=== PATIENT | female | born 1960 | race Caucasian/White ===

== ENCOUNTER 2016-07-01 05:21 | Emergency (ER) | payer MEDICAID ==
[2016-07-01 07:13] LABS: ABSOLUTE BASOPHILS # (AUTO) 0.1 10^3/uL (0.0-0.2); ABSOLUTE EOSINOPHILS # (AUTO) 0.2 10^3/uL (0.0-0.6); ABSOLUTE LYMPHOCYTES (AUTO) 3.7 10^3/uL (0.5-4.7); ABSOLUTE MONOCYTES (AUTO) 0.6 10^3/uL (0.1-1.4); ABSOLUTE NEUT (AUTO) 2.8 10^3/uL (1.7-8.2); BASOPHILS % (AUTO) 0.7 % (0-2); EOSINOPHILS % (AUTO) 2.9 % (0-6); HEMATOCRIT 33.1 % (36.0-47.0); HEMOGLOBIN 11.5 g/dL (12.0-15.5); HGB HCT DIFFERENCE 1.4; LYMPHOCYTES % (AUTO) 51.1 % (13-45); MEAN CORPUSCULAR HEMOGLOBIN 31.9 pg (27.0-33.4); MEAN CORPUSCULAR HGB CONC 34.7 g/dL (32.0-36.0); MEAN CORPUSCULAR VOLUME 92 fl (80-97); MONOCYTES % (AUTO) 7.7 % (3-13); RED CELL DISTRIBUTION WIDTH 12.6 % (11.5-14.0); SEGMENTED NEUTROPHILS % (AUTO) 37.6 % (42-78); WHITE BLOOD COUNT 7.3 10^3/uL (4.0-10.5)
[2016-07-01 07:32] LABS: PROTHROMBIN TIME 12.5 SEC (11.4-15.4)
[2016-07-01 07:33] LABS: PARTIAL THROMBOPLASTIN TIME 29.6 SEC (23.5-35.8)
[2016-07-01 07:34] LABS: ANION GAP 14 (5-19); BLOOD UREA NITROGEN 33 mg/dL (7-20); CALCIUM 9.9 mg/dL (8.4-10.2); CARBON DIOXIDE 24 mmol/L (22-30); CHLORIDE 107 mmol/L (98-107); CREATININE RESULT 1.08 mg/dL (0.52-1.25); GLUCOSE 113 mg/dL (75-110); POTASSIUM 4.2 mmol/L (3.6-5.0); SODIUM 144.6 mmol/L (137-145)
[2016-07-01] MEDS ORDERED: RIVAROXABAN 15 MG TABLET PO ONE (10:25)
--- NOTE | 2016-07-01 10:32 | ER Document Report ---
ED General - General Chief Complaint: Leg Swelling Stated Complaint: LEG PAIN TRAVEL OUTSIDE OF THE [place] 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 Patient currently states she's not any anticoagulation. Patient states shows a history of multiple blood clots is a IVC filter. States pain swelling ongoing for the last to 3 days. Denies fevers chills. Otherwise states that she sees hematology at [facility]. No recent travel - Related Data Allergies/Adverse Reactions: No Known Allergies Allergy (Verified 07/01/16 08:10) Past Medical History - Social History Smoking Status: Current Every Day Smoker Chew tobacco use (# tins/day): No Frequency of alcohol use: None Drug Abuse: Marijuana Family History: Reviewed & Not Pertinent Patient has suicidal ideation: No Patient has homicidal ideation: No - Past Medical History Cardiac Medical History: Reports: Hx DVT, Hx Hypercholesterolemia, Hx Pulmonary Embolism Pulmonary Medical History: Reports: Hx Asthma Neurological Medical History: Reports: Hx Migraine Renal/ Medical History: Reports: Hx Kidney Stones. Denies: Hx Peritoneal Dialysis GI Medical History: Reports: Hx Gastroesophageal Reflux Disease Psychiatric Medical History: Reports: Hx Bipolar Disorder, Hx Depression Past Surgical History: Reports: Hx Orthopedic Surgery - left leg; carpal tunnel to bilateral upper extrem - Immunizations Hx Diphtheria, Pertussis, Tetanus Vaccination: Yes - unknown Review of Systems - Review of Systems Constitutional: No symptoms reported EENT: No symptoms reported Cardiovascular: No symptoms reported Respiratory: No symptoms reported Gastrointestinal: No symptoms reported Genitourinary: No symptoms reported Female Genitourinary: No symptoms reported Musculoskeletal: Other - Bilateral lower extremity swelling Skin: No symptoms reported Hematologic/Lymphatic: No symptoms reported Neurological/Psychological: No symptoms reported Physical Exam - Vital signs Vitals: Temp Pulse Resp BP Pulse Ox 98.1 F 99 20 146/82 H 100 07/01/16 05:23 07/01/16 05:23 07/01/16 05:23 07/01/16 05:23 07/01/16 05:23 Interpretation: Normal - General General appearance: Appears well, Alert - HEENT Head: Normocephalic, Atraumatic Eyes: Normal Pupils: PERRL - Respiratory Respiratory status: No respiratory distress Chest status: Nontender Breath sounds: Normal Chest palpation: Normal - Cardiovascular Rhythm: Regular Heart sounds: Normal auscultation Murmur: No - Abdominal Inspection: Normal Distension: No distension Bowel sounds: Normal Tenderness: Nontender Organomegaly: No organomegaly - Back Back: Normal, Nontender - Extremities General upper extremity: Normal inspection, Nontender, Normal color, Normal ROM , Normal temperature General lower extremity: Normal inspection, Nontender, Edema - 2+ bilaterally. Patient does have tenderness to palpation of both calfs capillary refill intact distally. Patient has bilateral pedal pulses, Normal color, Normal ROM, Normal temperature, Normal weight bearing - Neurological Neuro grossly intact: Yes Cognition: Normal Orientation: AAOx4 [place] Coma Scale Eye Opening: Spontaneous [place] Coma Scale Verbal: Oriented R[place] Coma Scale Motor: Obeys Commands [place] Coma Scale Total: 15 Speech: Normal Motor strength normal: LUE, RUE, LLE, RLE Sensory: Normal - Psychological Associated symptoms: Normal affect, Normal mood - Skin Skin Temperature: Warm Skin Moisture: Dry Skin Color: Normal Course - Re-evaluation Re-evalutation: 07/01/16 12:43 Ultrasound shows subacute chronic DVTs. I did contact the [facility] inspected hematology on-call states as directed to having the patient seen recently last normal records weren't 2009. I did reconfirm with the patient patient states that she follows up at [facility] not [facility]. formerly [facility], [facility] was called and despite hematology states that they also do not have any records but recommended patient start on Xarelto. I did discussed case with our licensed acupuncturist on-call Dr. contreras who agrees to see the patient on outpatient basis also agree is with Xarelto 50 mg twice a day for her condition. Patient otherwise denies any bleeding disorders as a revision she was taken off of her Xarelto as that previous ER visits that showed she was on it. Patient continues to state that "there are [facility] took me off Xarelto and place being on Coumadin then on shots" patient is a very poor historian however looks to be stable for discharge home patient was given Xarelto prescription for Xarelto for next 21 days. Patient was given information to follow-up with Dr. dominguez - Vital Signs Vital signs: Temp Pulse Resp BP Pulse Ox 98.6 F 78 18 142/88 H 97 07/01/16 10:36 07/01/16 10:36 07/01/16 10:36 07/01/16 10:36 07/01/16 10:36 - Laboratory Result Diagrams: 07/01/16 07:07 07/01/16 07:07 Laboratory results interpreted by me: 07/01/16 07/01/16 07:07 07:07 RBC 3.60 L Hgb 11.5 L Hct 33.1 L Seg Neutrophils % 37.6 L Lymphocytes % 51.1 H BUN 33 H Est GFR (Non-Af Amer) 53 L Glucose 113 H Discharge - Discharge Clinical Impression: history of factor 5 leiden deficiency, subacute bilateral dvt, Localized swelling of both lower legs Condition: Good Disposition: HOME, SELF-CARE Instructions: DVT Outpatient Treatment (OM) Additional Instructions: Your ultrasound today shows chronic blood clots in both her legs. I have contacted [facility] and [facility] who both do not have any record of you seeing a platen grinder. I did call our hematologists here at [facility] Dr. Contreras who has agreed to see you Wednesday at 10:00. Please make sure he follow-up with his appointment. Please take medication as prescribed. Prescriptions: Rivaroxaban [Xarelto 15 mg Tablet] 15 mg PO BID 21 Days Forms: Return to Work Referrals: TUNG CONTRERAS MD [ACTIVE STAFF] - 07/07/16 (at 10am)
[2016-07-01 10:47] VITALS: BP 142/88
== END 2016-07-01 10:47 | disposition home or self-care (01) ==
LOC: ER 05:21
DX: M79.89 Other specified soft tissue disorders (principal); F17.200 Nicotine dependence, unspecified, uncomplicated; D68.51 Activated protein C resistance; I82.403 Acute embolism and thrombosis of unspecified deep veins of lower extremity, bilateral
CPT/HCPCS: 36415; 80048; 85025; 85610; 85730; 93970; 99284

== ENCOUNTER → 2018-03-29 | Outpatient (CLI) | payer MEDICAID ==
--- NOTE | 2018-03-29 16:33 | RADIOLOGY REPORT (SQ) ---
EXAM DESCRIPTION: C SP 4 OR 5 VIEWS COMPLETED DATE/TIME: 03/29/2018 4:19 pm REASON FOR STUDY: CERVICALGIA M54.5 LOW BACK PAIN M54.2 CERVICALGIA COMPARISON: None. NUMBER OF VIEWS: Five views. TECHNIQUE: AP, lateral, obliques and odontoid radiographic images acquired of the cervical spine. LIMITATIONS: None. FINDINGS: MINERALIZATION: Normal. ALIGNMENT: Anatomic. VERTEBRAE: Vertebral bodies of normal height. DISCS: No significant osteophytes or sclerosis. Disc height maintained. FORAMINA: No osteophytes or foraminal narrowing. LATERAL AND POSTERIOR ELEMENTS: Facets, lateral masses and spinous processes without significant find ings. HARDWARE: None in the spine. SOFT TISSUES: No masses or calcifications. Lung apices clear. OTHER: No other significant finding. IMPRESSION: NO SIGNIFICANT RADIOGRAPHIC FINDING IN THE CERVICAL SPINE. TECHNICAL DOCUMENTATION: JOB ID: [id number] [employer]- All Rights Reserved Reading location - IP/workstation name: [email or web address]
--- NOTE | 2018-03-29 16:34 | RADIOLOGY REPORT (SQ) ---
EXAM DESCRIPTION: LUMBAR SPINE COMPLETE COMPLETED DATE/TIME: 03/29/2018 4:19 pm REASON FOR STUDY: LBP M54.5 LOW BACK PAIN M54.2 CERVICALGIA COMPARISON: 07/24/2008. NUMBER OF VIEWS: Five views including obliques. TECHNIQUE: AP, lateral, oblique, and sacral radiographic images acquired of the lumbar spine. LIMITATIONS: None. FINDINGS: MINERALIZATION: Normal. SEGMENTATION: Normal. No transitional anatomy. ALIGNMENT: Normal. VERTEBRAE: Maintained height. No fracture or worrisome bone lesion. DISCS: Mild disc space narrowing. No significant osteophytes or end plate irregularity. POSTERIOR ELEMENTS: Pedicles and facets are intact. No pars defect or posterior arch defects. HARDWARE: None in the spine. PARASPINAL SOFT TISSUES: Normal. PELVIS: Intact as visualized. No fractures or worrisome bone lesions. SI joints intact. OTHER: No other significant finding. IMPRESSION: NORMAL 5 VIEW LUMBAR SPINE. TECHNICAL DOCUMENTATION: JOB ID: [id number] [employer]- All Rights Reserved Reading location - IP/workstation name: [email or web address] [place]
== END ==
LOC: OD 15:34
PROVIDERS: ATTEND Nurse Practitioner Acute Care
DX: M54.2 Cervicalgia (principal); M54.5 Low back pain
CPT/HCPCS: 72050; 72110

== ENCOUNTER 2018-04-01 13:26 | Emergency (ER) | payer MEDICAID ==
[2018-04-01] MEDS ORDERED: HYDROCODONE/ACETAMINOPHEN 5-325 MG TABLET PO ONE (15:28)
[2018-04-01] MEDS ORDERED: ACETAMINOPHEN 325 MG TABLET PO ONE (15:30)
--- NOTE | 2018-04-01 15:30 | ER Document Report ---
HPI - HPI Patient complains to provider of: Knee injury Time Seen by Provider: 04/01/18 15:24 Onset: Yesterday Onset/Duration: Sudden Quality of pain: Achy Pain Level: 5 Context: Patient states she was roughhousing with her nephew and he fell landing on her left knee. Patient complains of persistent left popliteal knee pain. Patient complains of increased pain with flexion and weightbearing. Associated Symptoms: Other - Left knee pain. denies: Fever Exacerbated by: Standing, Movement, Walking Relieved by: Denies Similar symptoms previously: No Recently seen / treated by doctor: No - ROS ROS below otherwise negative: Yes Systems Reviewed and Negative: Yes All other systems reviewed and negative - CONSTITUTIONAL Constitutional: DENIES: Fever - NEURO Neurology: DENIES: Weakness - GASTROINTESTINAL Gastrointestinal: DENIES: Nausea, Patient vomiting - REPRODUCTIVE Reproductive: DENIES: : - MUSCULOSKELETAL Musculoskeletal: REPORTS: Extremity pain - DERM Skin Color: Normal Skin Problems: None Past Medical History - General Information source: Patient - Social History Smoking Status: Current Every Day Smoker Smoking Education Provided: Yes Frequency of alcohol use: None Drug Abuse: None Occupation: none Lives with: Family Family History: Reviewed & Not Pertinent - Past Medical History Cardiac Medical History: Reports: Hx DVT, Hx Hypercholesterolemia, Hx Pulmonary Embolism Pulmonary Medical History: Reports: Hx Asthma Neurological Medical History: Reports: Hx Migraine Renal/ Medical History: Reports: Hx Kidney Stones. Denies: Hx Peritoneal Dialysis GI Medical History: Reports: Hx Gastroesophageal Reflux Disease Psychiatric Medical History: Reports: Hx Bipolar Disorder, Hx Depression Past Surgical History: Reports: Hx Orthopedic Surgery - left leg; carpal tunnel to bilateral upper extrem - Immunizations Hx Diphtheria, Pertussis, Tetanus Vaccination: Yes - unknown Vertical Provider Document - CONSTITUTIONAL Agree With Documented VS: Yes Exam Limitations: No Limitations General Appearance: WD/WN, No Apparent Distress - INFECTION CONTROL TRAVEL OUTSIDE OF THE [place] IN LAST 30 DAYS: No - HEENT HEENT: Atraumatic, Normocephalic - NECK Neck: Normal Inspection - RESPIRATORY Respiratory: No Respiratory Distress - CARDIOVASCULAR Pulses: Normal: Dorsalis pedis - MUSCULOSKELETAL/EXTREMETIES Musculoskeletal/Extremeties: MAEW, FROM, Tender - Tenderness to popliteal area of left knee, no joint effusion, no laxity with varus or valgus maneuvers, No Edema. negative: Eccymosis Notes: Patellar tendon intact - NEURO Level of Consciousness: Awake, Alert, Appropriate Motor/Sensory: No Motor Deficit - DERM Integumentary: Warm, Dry, No Rash Course - Re-evaluation Re-evalutation: 04/01/18 16:08 No concern for fracture or dislocation after injury. Will immobilize and advised outpatient follow-up with orthopedics for further evaluation. - Vital Signs Vital signs: Temp Pulse Resp BP Pulse Ox 99.6 F 112 H 16 106/83 99 04/01/18 13:34 04/01/18 13:34 04/01/18 13:34 04/01/18 13:34 04/01/18 13:34 - Diagnostic Test Radiology reviewed: Pending, Image reviewed Procedures - Immobilization Left Knee Pre-Proc Neuro Vasc Exam: Normal Immobilizer type: Knee immobilizer Performed by: RN Post-Proc Neuro Vasc Exam: Normal Alignment checked and good: Yes Discharge - Discharge Clinical Impression: Left knee sprain Qualifiers: Encounter type: initial encounter Involved ligament of knee: unspecified ligament Qualified Code(s): S83.92XA - Sprain of unspecified site of left knee, initial encounter Condition: Stable Disposition: HOME, SELF-CARE Instructions: Use of Crutches ([facility]), Family Physicians / Practices, Ice & Elevation ([facility]), Knee Immobilizing Splint ([facility]), Sprained Knee ([facility]) Additional Instructions: Return immediately for any new or worsening symptoms Followup with your primary care provider, call tomorrow to make a followup appointment Weightbearing as tolerated Follow-up with orthopedics for further evaluation, call Wednesday for an appointment Prescriptions: Naproxen [Naprosyn 250 Nmg Tablet] 1 tab PO BID #14 tablet Forms: Smoking Cessation Education Referrals: NA HERRERA NP [NURSE PRACTITIONER] - Follow up as needed [facility] [Provider Group] - Follow up as needed
--- NOTE | 2018-04-01 16:07 | RADIOLOGY REPORT (SQ) ---
EXAM DESCRIPTION: KNEE LEFT 4 VIEW COMPLETED DATE/TIME: 04/01/2018 3:57 pm REASON FOR STUDY: roughhousing, nephew fell on left knee COMPARISON: None. NUMBER OF VIEWS: Four views. TECHNIQUE: AP, lateral, and both oblique radiographic images acquired of the left knee. LIMITATIONS: None. FINDINGS: MINERALIZATION: Normal. BONES: No acute fracture or dislocation. No worrisome bone lesions. Chronic fracture deformities an d osteotomies of the proximal tibia and fibula. JOINT: No effusion. SOFT TISSUES: No soft tissue swelling. No radio-opaque foreign body. OTHER: No other significant finding. IMPRESSION: No fracture or dislocation of the left knee. Chronic fracture deformities and osteotomie s of the proximal tibia and fibula. TECHNICAL DOCUMENTATION: JOB ID: [id number] [employer]- All Rights Reserved Reading location - IP/workstation name: [email or web address]
[2018-04-01 16:22] VITALS: BP 147/85
== END 2018-04-01 16:22 | disposition home or self-care (01) ==
LOC: ER 13:26
DX: S83.92XA Sprain of unspecified site of left knee, initial encounter (principal); W50.0XXA Accidental hit or strike by another person, initial encounter; Y93.83 Activity, rough housing and horseplay; F17.200 Nicotine dependence, unspecified, uncomplicated; J45.909 Unspecified asthma, uncomplicated
CPT/HCPCS: 99283; 73564; L1830; J3490

== ENCOUNTER 2018-04-08 18:47 | Emergency (ER) | payer MEDICAID ==
[2018-04-08 19:56] LABS: ABSOLUTE BASOPHILS # (AUTO) 0.1 10^3/uL (0.0-0.2); ABSOLUTE EOSINOPHILS # (AUTO) 0.2 10^3/uL (0.0-0.6); ABSOLUTE LYMPHOCYTES (AUTO) 3.2 10^3/uL (0.5-4.7); ABSOLUTE MONOCYTES (AUTO) 0.6 10^3/uL (0.1-1.4); ABSOLUTE NEUT (AUTO) 4.6 10^3/uL (1.7-8.2); BASOPHILS % (AUTO) 0.7 % (0-2); EOSINOPHILS % (AUTO) 1.7 % (0-6); HEMATOCRIT 36.3 % (36.0-47.0); HEMOGLOBIN 12.6 g/dL (12.0-15.5); LYMPHOCYTES % (AUTO) 36.6 % (13-45); MEAN CORPUSCULAR HGB CONC 34.6 g/dL (32.0-36.0); MEAN CORPUSCULAR VOLUME 95 fl (80-97); MONOCYTES % (AUTO) 7.4 % (3-13); PLATELET COUNT 344 10^3/uL (150-450); RED BLOOD COUNT 3.81 10^6/uL (3.72-5.28); RED CELL DISTRIBUTION WIDTH 12.5 % (11.5-14.0); SEGMENTED NEUTROPHILS % (AUTO) 53.6 % (42-78); TOTAL CELLS COUNTED % (AUTO) 100 %; WHITE BLOOD COUNT 8.7 10^3/uL (4.0-10.5)
[2018-04-08] MEDS ORDERED: RINGERS SOLUTION,LACTATED 1,000 ML IV ONE (22:04)
--- NOTE | 2018-04-08 22:25 | ER Document Report ---
ED General - General Chief Complaint: GI Bleeding Stated Complaint: BLOOD IN STOOL Time Seen by Provider: 04/08/18 21:05 Notes: Patient is a 57-year-old female with a past medical history recurrent DVTs, IVC filter in place, hypertension, presents with complaints of 48 hours of recurrent diarrhea, now having small amounts of bright red blood when she wipes and mixed in with her diarrheal stools. She also notes intermittent, cramping, lower abdominal pain. Nothing improves or worsens her symptoms. Denies history of similar symptoms in the past. She states that she has had associated nausea but no vomiting. No fever or constitutional symptoms. Does not take any form of anti-coagulation. Has not seen her primary doctor regarding today's concerns. TRAVEL OUTSIDE OF THE [place] IN LAST 30 DAYS: No - Related Data Allergies/Adverse Reactions: No Known Allergies Allergy (Verified 07/01/16 08:10) Past Medical History - General Information source: Patient - Social History Smoking Status: Current Every Day Smoker Frequency of alcohol use: Occasional Drug Abuse: None Lives with: Family Family History: Reviewed & Not Pertinent Patient has suicidal ideation: No Patient has homicidal ideation: No - Past Medical History Cardiac Medical History: Reports: Hx DVT, Hx Hypercholesterolemia, Hx Pulmonary Embolism Pulmonary Medical History: Reports: Hx Asthma Neurological Medical History: Reports: Hx Migraine Renal/ Medical History: Reports: Hx Kidney Stones. Denies: Hx Peritoneal Dialysis GI Medical History: Reports: Hx Gastroesophageal Reflux Disease Psychiatric Medical History: Reports: Hx Bipolar Disorder, Hx Depression Past Surgical History: Reports: Hx Orthopedic Surgery - left leg; carpal tunnel to bilateral upper extrem - Immunizations Hx Diphtheria, Pertussis, Tetanus Vaccination: Yes - unknown Review of Systems - Review of Systems Notes: Constitutional: Negative for fever. HENT: Negative for sore throat. Eyes: Negative for visual changes. Cardiovascular: Negative for chest pain. Respiratory: Negative for shortness of breath. Gastrointestinal: Positive for abdominal cramping, diarrhea, rectal bleeding Genitourinary: Negative for dysuria. Musculoskeletal: Negative for back pain. Skin: Negative for rash. Neurological: Negative for headaches, weakness or numbness. 10 point ROS negative except as marked above and in HPI. Physical Exam - Vital signs Vitals: Resp Pulse Ox 18 98 04/08/18 19:12 04/08/18 19:12 Interpretation: Normal Notes: PHYSICAL EXAMINATION: GENERAL: Well-appearing, well-nourished and in no acute distress. HEAD: Atraumatic, normocephalic. EYES: Pupils equal round and reactive to light, extraocular movements intact, sclera anicteric, conjunctiva are normal. ENT: nares patent, oropharynx clear without exudates. Moist mucous membranes. NECK: Normal range of motion, supple without lymphadenopathy LUNGS: Breath sounds clear to auscultation bilaterally and equal. No wheezes rales or rhonchi. HEART: Regular rate and rhythm without murmurs ABDOMEN: Soft, nontender, normoactive bowel sounds. No guarding, no rebound. No masses appreciated. Rectal: No gross blood, brown stool EXTREMITIES: Normal range of motion, no pitting or edema. No cyanosis. NEUROLOGICAL: No focal neurological deficits. Moves all extremities sp ontaneously and on command. PSYCH: Normal mood, normal affect. SKIN: Warm, Dry, normal turgor, no rashes or lesions noted. Course - Re-evaluation Re-evalutation: 04/08/18 22:05 Patient presents with 2 days of diarrhea and 24 hours of small amounts of bright red blood mixed in with her stool and when she wipes. On rectal examination the patient has no active bleeding, brown stool present. No melena or hematochezia of any kind. She has not had any hematemesis, as tolerated oral intake without difficulty. CBC without any evidence of anemia. The patient did initially complain of some abdominal pain although has no focal abdominal tenderness on examination. Initial vitals showed tachycardia although at the time heart rate on monitor is 86 bpm with a blood pressure of 159 on 109. She is otherwise extremely well in appearance. States that she was nervous that this could be related something to her previous history of DVTs. Given normal blood count, no blood on rectal examination,, benign abdominal exam, suspect that patient likely had a small amount of internal hemorrhoidal bleeding or rectal mucosal irritation secondary to frequent diarrhea. Exam and history are not consistent with massive upper lower GI bleed. Do not suspect any acute intra-abdominal surgical pathology given benign abdominal exam, absence of leukocytosis, reassuring vitals of my evaluation. At this time will discharge with return pre cautions and follow-up recommendations. Verbal discharge instructions given a the bedside and opportunity for questions given. Medication warnings reviewed. Patient is in agreement with this plan and has verbalized understanding of return precautions and the need for primary care follow-up in the next 24-72 hours. - Vital Signs Vital signs: Temp Pulse Resp BP Pulse Ox 98.6 F 123 H 21 H 132/68 H 99 04/08/18 22:00 04/08/18 19:45 04/08/18 22:00 04/08/18 22:00 04/08/18 22:00 - Laboratory Result Diagrams: 04/08/18 19:35 Discharge - Discharge Clinical Impression: Rectal bleeding, Lower abdominal pain Diarrhea Qualifiers: Diarrhea type: presumed infectious Qualified Code(s): R19.7 - Diarrhea, unspecified Condition: Stable Disposition: HOME, SELF-CARE Additional Instructions: You need to return to the emergency department immediately if you pass a large amount of blood in your stool, you began vomiting blood, you have worsening of your abdominal pain, you develop a fever of greater than 100.4 F, or have any other symptoms that are worrisome to you. Please follow-up with your primary care physician within the next 24-48 hours. Prescriptions: Hyoscyamine Sulfate [Levsin 0.125 Tablet] 0.125 mg PO TID PRN #30 tablet PRN Reason:
[2018-04-09 03:19] VITALS: BP 132/68
== END 2018-04-08 22:00 | disposition home or self-care (01) ==
LOC: ER 18:47
DX: R19.7 Diarrhea, unspecified (principal); K62.5 Hemorrhage of anus and rectum; R10.30 Lower abdominal pain, unspecified; F17.200 Nicotine dependence, unspecified, uncomplicated; Z79.01 Long term (current) use of anticoagulants; Z86.718 Personal history of other venous thrombosis and embolism
CPT/HCPCS: 99285; 36415; 85025; J7120

== ENCOUNTER 2019-05-14 18:24 | Inpatient (IN) | payer MEDICAID ==
--- NOTE | 2019-05-14 19:12 | ER Document Report ---
ED Medical Screen (RME) - General Chief Complaint: Chest Pain Stated Complaint: CHEST PAIN Time Seen by Provider: 05/14/19 18:59 Mode of Arrival: Ambulatory Information source: Patient Notes: 58-year-old female patient with history of clotting disorder presents to the emergency department with chief complaint of chest pain and inability to take a deep breath. Patient feels like there is an elephant sitting on the right side of her chest. She reports a history of DVT, PE and has an IVC filter in place however she states she stopped taking her Xarelto about 2 years ago without the direction of a physician. Patient was mildly tachycardic in triage with a heart rate of 103. I did discuss this case with one of the attending physicians, Dr. Ferrer, will proceed with CTA of the chest due to her multiple risk factors for pulmonary embolism. I have greeted and performed a rapid initial assessment of this patient. A comprehensive ED assessment and evaluation of the patient, analysis of test results and completion of the medical decision making process will be conducted by additional ED providers. I have specifically instructed the patient or family members with the patient to immediately return to any nursing staff should anything change in the patient's condition or with their chief complaint. TRAVEL OUTSIDE OF THE [place] IN LAST 30 DAYS: No - Related Data Allergies/Adverse Reactions: No Known Allergies Allergy (Verified 04/09/18 15:31) Past Medical History - Past Medical History Cardiac Medical History: Reports: Hx DVT, Hx Hypercholesterolemia, Hx Hypertension - No daily meds (02/27/18), Hx Pulmonary Embolism Pulmonary Medical History: Reports: Hx Asthma Neurological Medical History: Reports: Hx Migraine Renal/ Medical History: Reports: Hx Kidney Stones. Denies: Hx Peritoneal Dialysis GI Medical History: Reports: Hx Gastroesophageal Reflux Disease Psychiatric Medical History: Reports: Hx Bipolar Disorder, Hx Depression Past Surgical History: Reports: Hx Orthopedic Surgery - Left Leg - Immunizations Immunizations up to date: Yes Hx Diphtheria, Pertussis, Tetanus Vaccination: No Physical Exam - Vital signs Vitals: Temp Pulse Resp BP Pulse Ox 98.6 F 100 20 151/93 H 98 05/14/19 18:45 05/14/19 18:45 05/14/19 18:45 05/14/19 18:45 05/14/19 18:45 Course - Vital Signs Vital signs: Temp Pulse Resp BP Pulse Ox 98.6 F 100 20 151/93 H 98 02/23/20 18:45 05/14/19 18:45 05/14/19 18:45 05/14/19 18:45 05/14/19 18:45
[2019-05-14 20:56] LABS: ABSOLUTE BASOPHILS # (AUTO) 0.1 10^3/uL (0.0-0.2); ABSOLUTE EOSINOPHILS # (AUTO) 0.1 10^3/uL (0.0-0.6); ABSOLUTE LYMPHOCYTES (AUTO) 3.2 10^3/uL (0.5-4.7); ABSOLUTE MONOCYTES (AUTO) 0.6 10^3/uL (0.1-1.4); ABSOLUTE NEUT (AUTO) 4.1 10^3/uL (1.7-8.2); BASOPHILS % (AUTO) 0.7 % (0-2); EOSINOPHILS % (AUTO) 1.8 % (0-6); HEMATOCRIT 35.8 % (36.0-47.0); HEMOGLOBIN 12.4 g/dL (12.0-15.5); LYMPHOCYTES % (AUTO) 39.5 % (13-45); MEAN CORPUSCULAR HEMOGLOBIN 32.8 pg (27.0-33.4); MEAN CORPUSCULAR HGB CONC 34.6 g/dL (32.0-36.0); MEAN CORPUSCULAR VOLUME 95 fl (80-97); MONOCYTES % (AUTO) 7.2 % (3-13); PLATELET COUNT 317 10^3/uL (150-450); RED BLOOD COUNT 3.77 10^6/uL (3.72-5.28); RED CELL DISTRIBUTION WIDTH 13.9 % (11.5-14.0); SEGMENTED NEUTROPHILS % (AUTO) 50.8 % (42-78); TOTAL CELLS COUNTED % (AUTO) 100 %
[2019-05-14 21:17] LABS: ALBUMIN 4.3 g/dL (3.5-5.0); ALKALINE PHOSPHATASE 99 U/L (38-126); ANION GAP 6 (5-19); ASPARTATE AMINO TRANSFERASE 32 U/L (14-36); BILIRUBIN,DIRECT 0.3 mg/dL (0.0-0.4); BILIRUBIN,TOTAL 0.4 mg/dL (0.2-1.3); BLOOD UREA NITROGEN 15 mg/dL (7-20); CALCIUM 9.9 mg/dL (8.4-10.2); CARBON DIOXIDE 28 mmol/L (22-30); CHLORIDE 106 mmol/L (98-107); GLUCOSE 78 mg/dL (75-110); POTASSIUM 4.4 mmol/L (3.6-5.0); TOTAL PROTEIN 8.3 g/dL (6.3-8.2)
[2019-05-14] MEDS ORDERED: ONDANSETRON HCL INJ/PF 4 MG/2 ML SDV IV ONE (21:19)
[2019-05-14] MEDS ORDERED: MORPHINE SULFATE 10 MG/ML INJ IV ONE (21:19)
--- NOTE | 2019-05-14 21:20 | ER Document Report ---
ED General - General Chief Complaint: Chest Pain Stated Complaint: CHEST PAIN Time Seen by Provider: 05/14/19 18:59 Mode of Arrival: Ambulatory Notes: Patient is a 58-year-old female that comes emergency department for chief complaint of right-sided chest pain for the past 2 days. She states she feels pressure and also sharp pain. She states it feels like someone is sitting on her chest. She states it is hard to take a deep breath. She states she felt a little lightheaded earlier as well. She states she was trying to take ibuprofen but this did not relieve the pain. She denies fever, cough, nausea, vomiting, abdominal pain. She does have a history of pulmonary embolism, DVT, she states she used to be on Xarelto but she was stopped on this 2 years ago, she also has an IVC filter in place. She denies any cardiac history. She does have a history of factor V Leiden. TRAVEL OUTSIDE OF THE [place] IN LAST 30 DAYS: No - Related Data Allergies/Adverse Reactions: No Known Allergies Allergy (Verified 04/09/18 15:31) Past Medical History - General Information source: Patient - Social History Smoking Status: Current Every Day Smoker Frequency of alcohol use: None Drug Abuse: None Lives with: Family Family History: Reviewed & Not Pertinent Patient has suicidal ideation: No Patient has homicidal ideation: No - Past Medical History Cardiac Medical History: Reports: Hx DVT, Hx Hypercholesterolemia, Hx Hypertension - No daily meds (02/27/18), Hx Pulmonary Embolism Pulmonary Medical History: Reports: Hx Asthma Neurological Medical History: Reports: Hx Migraine Renal/ Medical History: Reports: Hx Kidney Stones. Denies: Hx Peritoneal Dialysis GI Medical History: Reports: Hx Gastroesophageal Reflux Disease Psychiatric Medical History: Reports: Hx Bipolar Disorder, Hx Depression Past Surgical History: Reports: Hx Orthopedic Surgery - Left Leg - Immunizations Immunizations up to date: Yes Hx Diphtheria, Pertussis, Tetanus Vaccination: No Review of Systems - Review of Systems Constitutional: No symptoms reported EENT: No symptoms reported Cardiovascular: See HPI Respiratory: See HPI Gastrointestinal: No symptoms reported Genitourinary: No symptoms reported Female Genitourinary: No symptoms reported Musculoskeletal: No symptoms reported Skin: No symptoms reported Hematologic/Lymphatic: No symptoms reported Neurological/Psychological: No symptoms reported Physical Exam - Vital signs Vitals: Temp Pulse Resp BP Pulse Ox 98.6 F 100 20 151/93 H 98 02/23/20 18:45 05/14/19 18:45 05/14/19 18:45 05/14/19 18:45 05/14/19 18:45 - Notes Notes: GENERAL: Patient appears somewhat uncomfortable but she is not in severe distress HEAD: Normocephalic, atraumatic. EYES: Pupils equal, round, and reactive to light. Extraocular movements intact. ENT: Oral mucosa moist, tongue midline. Oropharynx unremarkable. Airway patent. NECK: Full range of motion. Supple. Trachea midline. LUNGS: Patient does have slight tenderness to the right chest wall but nonspecific. No erythema, crepitus, or signs of trauma. No respiratory distress. HEART: Regular rate and rhythm. No murmur ABDOMEN: Soft, non-tender. Non-distended. EXTREMITIES: Moves all 4 extremities spontaneously. No edema, normal radial and dorsalis pedis pulses bilaterally. No cyanosis. BACK: no cervical, thoracic, lumbar midline tenderness. No saddle anesthesia, normal distal neurovascular exam. Moves all extremities in full range of motion. NEUROLOGICAL: Alert and oriented x3. Normal speech. Cranial nerves II through XII grossly intact. PSYCH: Normal affect, normal mood. SKIN: Warm, dry, normal turgor. No rashes or lesions noted. Course - Re-evaluation Re-evalutation: Patient initially uncomfortable, she was medicated. After this she appeared much more relaxed. CBC, chemistry, troponin unremarkable. Chest x-ray unremarkable. Because of patient's extensive history CTA will be performed to rule out pulmonary embolism. Second troponin negative. CTA does show right-sided pulmonary emboli. This is possibly chronic but I spoke to the radiologist, she states this could still be acute especially with patient's acute symptoms. Discussed with patient, she is very uncomfortable again, she will be remedicated. I called and spoke with hematology on-call Dr. Chauhan, be case of patient's extensive history, symptoms requiring pain control, lightheadedness and tachycardia on ambulation, and currently not being on anticoagulation, he r ecommends patient be admitted, he can be consulted and will see the patient, and patient should be started on Lovenox q12h. Discussed with patient and she states understanding and agreement with plan. Discussed with Dr. Reese, hospitalist, patient accepted to medical floor full admission. - Vital Signs Vital signs: Temp Pulse Resp BP Pulse Ox 98.2 F 82 22 H 145/73 H 99 05/15/19 04:02 05/15/19 04:02 05/15/19 04:02 05/15/19 04:02 05/15/19 04:02 - Laboratory Result Diagrams: 05/14/19 20:42 05/14/19 20:42 Laboratory results interpreted by me: 05/14/19 05/14/19 20:42 20:42 Hct 35.8 L Est GFR (MDRD) Non-Af 53 L Total Protein 8.3 H - EKG Interpretation by Me Additional EKG results interpreted by me: EKG shows sinus tachycardia at a rate of 103, borderline left axis deviation, borderline T waves in lead III but no T wave inversions or ST segment changes in consecutive leads. QTC of 440. Discharge - Discharge Clinical Impression: Right-sided chest pain, Shortness of breath Pulmonary embolism Qualifiers: Pulmonary embolism type: other Chronicity: acute Acute cor pulmonale presence: unspecified Qualified Code(s): I26.99 - Other pulmonary embolism without acute cor pulmonale Condition: Stable Disposition: ADMITTED INPATIENT Unit Admitted: Medical Floor
--- NOTE | 2019-05-14 22:40 | RADIOLOGY REPORT (SQ) ---
EXAM DESCRIPTION: CT CHEST ANGIOGRAPHY WITHOUT THEN WITH IV CONTRAST COMPLETED DATE/TME: 05/14/2019 19:06 CLINICAL HISTORY: 58 years, Female, chest pain hx of pulmonary embolism COMPARISON: None. TECHNIQUE: 543 Images stored on PACS. All CT scanners at this facility use dose modulation, iterative reconstruction, and/or weight based dosing when appropriate to reduce radiation dose to as low as reasonably achievable (ALARA). Axial CTA images with coronal and sagittal MIPS [facility]: Dose Right [facility]: CareDose [facility]: Dose Right [facility]: Teradose 4D [facility]: [employer] LIMITATIONS: None. FINDINGS: There is a somewhat linear-appearing low density filling defect associated with proximal right lower lobe arterial branch, consistent with what is likely chronic PE. There is no large or central PE. No other areas of pulmonary embolus. Negative for thoracic aortic aneurysm or dissection. Heart and pericardium are unremarkable. Limited evaluation of upper abdomen unremarkable. Osseous structures are grossly intact. There is no pneumothorax. The airways are patent. Lungs are clear IMPRESSION: Linear areas of low density filling defect associated with the proximal right lower lobe arterial segments likely reflecting chronic PE. No large or central PE. Lungs are clear TECHNICAL DOCUMENTATION: Quality ID # 436: Final reports with documentation of one or more dose reduction techniques (e.g., Automated exposure control, adjustment of the mA and/or kV according to patient size, use of iterative reconstruction technique) copyright 2011 [employer]- All Rights Reserved
--- NOTE | 2019-05-14 22:49 | RADIOLOGY REPORT (SQ) ---
EXAM DESCRIPTION: XR CHEST 1 VIEW COMPLETED DATE/TME: 05/14/2019 19:09 CLINICAL HISTORY: 58 years, Female, chest pain COMPARISON: None. EXAM DESCRIPTION: CLINICAL HISTORY: chest pain COMPARISON: None. FINDINGS: Single view of the chest is submitted. Cardiac silhouette is normal. No focal parenchymal or pleural disease. There is no significant pulmonary vascular engorgement. IMPRESSION: No evidence of acute cardiopulmonary disease.
[2019-05-14 23:07] LABS: INTERNATIONAL RATION (INR) 0.88; PARTIAL THROMBOPLASTIN TIME 27.8 SEC (23.5-35.8); PROTHROMBIN TIME 11.9 SEC (11.4-15.4)
--- NOTE | 2019-05-14 23:13 | EKG REPORT ---
SEVERITY:- BORDERLINE ECG - SINUS TACHYCARDIA PROBABLE LEFT ATRIAL ABNORMALITY : Confirmed by: Elizabeth Avila 14-May-2019 23:13:23
[2019-05-14] MEDS ORDERED: ASPIRIN 81 MG TABLET, CHEWABLE PO ONE (23:34)
[2019-05-14] MEDS ORDERED: FENTANYL CITRATE INJ/PF 100 MCG/2 ML AMPUL IV ONE (23:34)
[2019-05-14] MEDS ORDERED: ENOXAPARIN SODIUM INJ 80 MG/0.8 ML DISP.SYRIN SUBCUT SCH (23:45)
[2019-05-15] MEDS ORDERED: NICOTINE 14 MG/24 HR PATCH.TD24 TD ONE (00:22)
[2019-05-15] MEDS ORDERED: MAGNESIUM HYDROXIDE SUSP 30 ML UDCUP PO PRN (02:31)
[2019-05-15] MEDS ORDERED: HYDRALAZINE HCL INJ/PF 20 MG/1 ML SDV IV PRN (02:31)
[2019-05-15] MEDS ORDERED: PROMETHAZINE HCL INJ 25 MG/1 ML VIAL IV PRN (02:31)
[2019-05-15] MEDS ORDERED: MORPHINE SULFATE 10 MG/ML INJ IV PRN ×2 (02:31)
[2019-05-15] MEDS ORDERED: ACETAMINOPHEN 325 MG TABLET PO PRN (02:31)
[2019-05-15] MEDS ORDERED: GUAIFENESIN SYRP 200 MG/10 ML UDC PO PRN (02:31)
[2019-05-15] MEDS ORDERED: MAG HYDROX/AL HYDROX/SIMETH SUSP 30 ML UDCUP PO PRN (02:31)
[2019-05-15] MEDS ORDERED: NICOTINE 21 MG/24 HR PATCH.TD24 TD PRN (02:31)
[2019-05-15] MEDS ORDERED: MELATONIN 5 MG TABLET PO PRN (02:31)
[2019-05-15] MEDS ORDERED: LEVALBUTEROL HCL NEB 0.63 MG/3 ML AMPUL NEB PRN (02:34)
[2019-05-15] MEDS ORDERED: ZOLPIDEM TARTRATE 5 MG TABLET PO PRN (02:37)
[2019-05-15] MEDS: MORPHINE SULFATE 10 MG/ML INJ IV PRN ×6 (04:04→23:45)
--- NOTE | 2019-05-15 04:42 | PDOC H&P ---
History of Present Illness Admission Date/PCP: 05/15/19 01:35 MERRICK GOSS Patient complains of: Chest pain History of Present Illness: BEATRICE URIBE is a 58 year old female who presented to the emergency room with a 3-day history of right-sided chest pain. She admits a sudden onset of constant, moderately severe, right anterior chest pressure and sharp pain without radiation on 05/12/2019. The pain is accompanied by dyspnea and both the pain and dyspnea are worsened on exertion. The pain is associated with occasional lightheadedness on standing. The pain was not improved by ibuprofen. She denies other associated or accompanying signs and symptoms. She admits a history of pulmonary embolism in the past and was on Xarelto until 2 years ago when an IVC filter was placed. She has a history of factor V Leiden disease. She denies identification of any additional aggravating or ameliorating factors for her chest pain. In the emergency room she was found to have a CTA of the chest which revealed a pulmonary embolism in the right lower lobe arterial distribution of questionable age. Because of the patient's acute symptoms it was elected to treat this as an acute pulmonary embolism and she was therefore started on therapy with Lovenox. At the request of Dr. Chauhan she was admitted to the hospital for further evaluation and treatment. Past Medical History Cardiac Medical History: Reports: DVT, Hyperlipidema, Hypertension, Pulmonary Embolism Denies: Atrial Fibrillation, Congestive Heart Failure, Coronary Artery Dise ase, Myocardial Infarction, Peripheral Vascular Disease Pulmonary Medical History: Reports: Asthma Denies: Bronchitis, Chronic Obstructive Pulmonary Disease (COPD), Pneumonia, Tuberculosis EENT Medical History: Denies: Cataracts, Ears - Hearing aids Neurological Medical History: Reports: Migraine Denies: Hemorrhagic CVA, Ischemic CVA, Seizures Endocrine Medical History: Denies: Diabetes Mellitus Type 1, Diabetes Mellitus Type 2, Hyperthyroidism, Hypothyroidism Renal/ Medical History: Denies: Chronic Kidney Disease, Nephrolithiasis Malignancy Medical History: Reports: None GI Medical History: Reports: Gastroesophageal Reflux Disease Denies: Cirrhosis, Crohn's Disease, Hepatitis, Peptic Ulcer Disease, Ulcer ative Colitis Musculoskeltal Medical History: Denies: Arthritis, Gout Skin Medical History: Denies: Eczema, Psoriasis Psychiatric Medical History: Reports: Bipolar Disorder, Depression, Tobacco Dependency Denies: Alcohol Dependency, Substance Abuse Traumatic Medical History: Reports: None Hematology: Reports: Other - Factor V Leiden disease Denies: Anemia, Bleeding Tendencies Infectious Medical History: Reports: None Past Surgical History Past Surgical History: Reports: Orthopedic Surgery - Left Leg, Vascular Surgery - IVC filter Social History Information Source: Patient Lives with: Parents Smoking Status: Current Every Day Smoker Electronic Cigarette use?: No Frequency of Alcohol Use: None Hx Recreational Drug Use: No Drugs: None Hx Prescription Drug Abuse: No - Advance Directive Resuscitation Status: Full Code Surrogate healthcare decision maker:: Matthew Metzger Family History Family History: CAD, DM, Malignancy. denies: Hypertension Parental Family History Reviewed: Yes Children Family History Reviewed: No Sibling(s) Family History Reviewed.: Yes Medication/Allergy Home Medications: Quetiapine Fumarate [Seroquel] 300 mg PO QHS 10/25/11 Zolpidem Tartrate [Ambien 10 mg Tablet] 10 mg PO QHS 10/25/11 Ropinirole HCl [Requip] 0.25 mg PO QHS 05/15/19 Allergies/Adverse Reactions: No Known Allergies Allergy (Verified 04/09/18 15:31) Review of Systems Constitutional: ABSENT: chills, fever(s) Eyes: ABSENT: visual disturbances, other - Eye pain Ears: ABSENT: hearing changes, other - Ear pain Nose, Mouth, and Throat: ABSENT: headache(s), mouth pain, sore throat Cardiovascular: PRESENT: as per HPI, chest pain, dyspnea on exertion. ABSENT: edema, orthropnea, palpitations Respiratory: PRESENT: as per HPI, dyspnea. ABSENT: cough, hemoptysis Gastrointestinal: ABSENT: abdominal pain, constipation, diarrhea, nausea, vomit ing Genitourinary: ABSENT: dysuria, hematuria Musculoskeletal: ABSENT: back pain, joint swelling, muscle weakness Integumentary: ABSENT: pruritus, rash Neurological: PRESENT: as per HPI, other - Lightheadedness on standing. ABSENT: confusion, convulsions, focal weakness, memory loss, syncope Psychiatric: ABSENT: anxiety, depression Endocrine: ABSENT: cold intolerance, heat intolerance, polydipsia, polyphagia, polyuria Hematologic/Lymphatic: ABSENT: easy bleeding, easy bruising Allergic/Immunologic: ABSENT: seasonal rhinorrhea Physical Exam Vital Signs: Temp Pulse Resp BP Pulse Ox 98.6 F 100 20 154/96 H 96 05/14/19 18:45 05/14/19 18:45 05/15/19 00:01 05/15/19 00:01 05/15/19 00:01 Intake & Output 05/13/19 05/14/19 05/15/19 23:59 23:59 23:59 Weight 72.7 kg General appearance: PRESENT: no acute distress, cooperative Head exam: PRESENT: atraumatic, normocephalic Eye exam: PRESENT: conjunctiva pink. ABSENT: conjunctival injection, scleral icterus Ear exam: PRESENT: normal external ear exam. ABSENT: bleeding, drainage Mouth exam: PRESENT: dry mucosa, neck supple Neck exam: ABSENT: thyromegaly, tracheal deviation Respiratory exam: PRESENT: clear to auscultation michel, symmetrical, unlabored Cardiovascular exam: PRESENT: RRR. ABSENT: clicks, gallop, rubs Pulses: PRESENT: normal radial pulses, normal dorsalis pedis pul Vascular exam: PRESENT: normal capillary refill. ABSENT: pallor GI/Abdominal exam: PRESENT: normal bowel sounds, soft. ABSENT: tenderness Rectal exam: PRESENT: deferred Extremities exam: ABSENT: joint swelling, pedal edema Musculoskeletal exam: ABSENT: deformity, dislocation Neurological exam: PRESENT: alert, oriented to person, oriented to place, oriented to time, oriented to situation, CN II-XII grossly intact. ABSENT: motor sensory deficit Psychiatric exam: PRESENT: appropriate affect, normal mood Skin exam: PRESENT: dry, intact, warm. ABSENT: jaundice, rash, urticaria Results Laboratory Results: 05/14/19 20:42 05/14/19 20:42 05/14/19 05/14/19 20:42 20:42 WBC 8.0 RBC 3.77 Hgb 12.4 Hct 35.8 L MCV 95 MCH 32.8 MCHC 34.6 RDW 13.9 Plt Count 317 Seg Neutrophils % 50.8 Sodium 140.4 Potassium 4.4 Chloride 106 Carbon Dioxide 28 Anion Gap 6 BUN 15 Creatinine 1.07 Est GFR ( Amer) > 60 Glucose 78 Calcium 9.9 Total Bilirubin 0.4 AST 32 Alkaline Phosphatase 99 Total Protein 8.3 H Albumin 4.3 05/14/19 05/14/19 20:42 22:06 Troponin I < 0.012 < 0.012 Impressions: Chest/Abdomen CTA 05/14/19 19:06 IMPRESSION: Linear areas of low density filling defect associated with the proximal right lower lobe arterial segments likely reflecting chronic PE. No large or central PE. Lungs are clear TECHNICAL DOCUMENTATION: Quality ID # 436: Final reports with documentation of one or more dose reduction techniques (e.g., Automated exposure control, adjustment of the mA and/or kV according to patient size, use of iterative reconstruction technique) copyright 2011 [employer]- All Rights Reserved Chest X-Ray 05/14/19 19:09 IMPRESSION: No evidence of acute cardiopulmonary disease. Assessment and Plan - Diagnosis (1) Pulmonary embolism Qualifiers: Pulmonary embolism type: other Chronicity: acute Acute cor pulmonale presence: unspecified Qualified Code(s): I26.99 - Other pulmonary embolism without acute cor pulmonale Is this a current diagnosis for this admission?: Yes (2) Right-sided chest pain Is this a current diagnosis for this admission?: Yes (3) Factor V Leiden Is this a current diagnosis for this admission?: Yes (4) Hypertension Qualifiers: Hypertension type: essential hypertension Qualified Code(s): I10 - Essential (primary) hypertension Is this a current diagnosis for this admission?: Yes (5) Hyperlipidemia Qualifiers: Hyperlipidemia type: unspecified Qualified Code(s): E78.5 - Hyperlipidemia, unspecified Is this a current diagnosis for this admission?: Yes (6) GERD (gastroesophageal reflux disease) Qualifiers: Esophagitis presence: esophagitis presence not specified Qualified Code(s): K21.9 - Gastro-esophageal reflux disease without esophagitis Is this a current diagnosis for this admission?: Yes (7) Tobacco use disorder Is this a current diagnosis for this admission?: Yes - Plan Summary Summary: Patient is admitted to the medical floor where she will receive routine supportive and symptomatic cares. She will be treated with Lovenox 1 mg/kg subcutaneously every 12 hours. She will use morphine sulfate 2 to 4 mg IV every 2 hours on an as-needed basis for pain. She will use Ativan 1 mg IV every 4 hours on a as needed basis as needed for anxiety. Dr. Chauhan will be consulted to participate in the patient's care. CBCs, metabolic profiles and magnesium levels will be obtained as appropriate. Patient will be continued on her usual home medications as appropriate as soon as her medication list has been verified and reconciled. Smoking cessation is advised and counseled briefly. A nicotine replacement patch is available for patients use, if required. - Time Time Spent with patient: 25-34 minutes Smoking Cessation Education: 3 to 10 minutes Medications reviewed and adjusted accordingly: Yes Anticipated discharge: Home - Inpatient Certification Based on my medical assessment, after consideration of the patient's comorbidities, presenting symptoms, or acuity I expect that the services needed warrant INPATIENT care.: Yes I certify that my determination is in accordance with my understanding of Medicare's requirements for reasonable and necessary INPATIENT services [42 CFR 412.3e].: Yes Medical Necessity: Significant Comorbidiites Make Outpatient Treatment Too Risky, Need Close Monitoring Due to Risk of Patient Decompensation, Need for Pain Control, Risk of Complication if Not Cared For in Hospital
[2019-05-15] MEDS: LORAZEPAM INJ 2 MG/1 ML VIAL IV PRN ×4 (04:53→23:45)
[2019-05-15] MEDS ORDERED: QUETIAPINE FUMARATE 100 MG TABLET PO ONE (05:15)
[2019-05-15] MEDS: ENOXAPARIN SODIUM INJ 80 MG/0.8 ML DISP.SYRIN SUBCUT SCH ×2 (10:03→21:36)
[2019-05-15] MEDS: DOCUSATE SODIUM 100 MG CAPSULE PO SCH ×2 (10:03→18:00)
[2019-05-15] MEDS: FAMOTIDINE 20 MG TABLET PO SCH ×2 (10:04→21:35)
--- NOTE | 2019-05-15 10:43 | PDOC CONSULTATION ---
Consultation Consult Date: 05/15/19 Provider Consulted: ROBBIE COH Consult reason:: Hematology/Oncology consult was requested for patient with Factor V Leiden gene muation and new pulmonary embolism. History of Present Illness Admission Date/PCP: 05/15/19 01:35 RUBINA GOSS-C History of Present Illness: BEATRICE URIBE is a 58 year old female who was diagnosed with her first blood clot over 10 years ago. She states that she was evaluated at [place] and was told that she had a Factor V Leiden gene mutation, but she is not sure if this was 1 copy, or 2 copies. She has had other blood clots in the past, but most recently, stopped her Xarelto about 3 years ago. She states that she did well with the xarelto, but thought that "she was over that" and would not need any more blood thinners. However, 3 days ago, she developed pain in her right breast. This was unlike previous blood clots. The pain progressed and yesterday, she presented to the ED. She denies significant dyspnea, but it does hurt to take a breath and to move. She is not able to lay on her right side. The pain medication is not helping much. She has never had a mammogram. She asks about her regular medications, including her seroquel. Past Medical History Cardiac Medical History: Reports: DVT, Hyperlipidema, Hypertension - No daily meds (02/27/18), Pulmonary Embolism Denies: Atrial Fibrillation, Congestive Heart Failure, Coronary Artery Disease, Myocardial Infarction, Peripheral Vascular Disease Pulmonary Medical History: Reports: Asthma Denies: Bronchitis, Chronic Obstructive Pulmonary Disease (COPD), Pneumonia, Tuberculosis EENT Medical History: Reports: Other - Factor V Leiden disease Denies: Cataracts, Ears - Hearing aids Neurological Medical History: Reports: Migraine Denies: Hemorrhagic CVA, Ischemic CVA, Seizures Endocrine Medical History: Denies: Diabetes Mellitus Type 1, Diabetes Mellitus Type 2, Hyperthyroidism, Hypothyroidism Renal/ Medical History: Denies: Chronic Kidney Disease, Nephrolithiasis Malignancy Medical History: Reports: None GI Medical History: Reports: Gastroesophageal Reflux Disease Denies: Cirrhosis, Crohn's Disease, Hepatitis, Peptic Ulcer Disease, Ulcerative Colitis Musculoskeltal Medical History: Denies: Arthritis, Gout Skin Medical History: Denies: Eczema, Psoriasis Psychiatric Medical History: Reports: Bipolar Disorder, Depression, Tobacco De pendency Denies: Alcohol Dependency, Substance Abuse Traumatic Medical History: Reports: None Hematology: Reports: Other - Factor V Leiden disease Denies: Anemia, Bleeding Tendencies Infectious Medical History: Reports: None Past Surgical History Past Surgical History: Reports: Orthopedic Surgery - Left Leg, Vascular Surgery - IVC filter Social History Lives with: Family Smoking Status: Current Every Day Smoker Cigarettes Packs Per Day: 2 Electronic Cigarette use?: No Number of Years Smokin Frequency of Alcohol Use: None Hx Recreational Drug Use: No Drugs: None Hx Prescription Drug Abuse: No Past Social History Note: She has 1 son. - Advance Directive Resuscitation Status: Full Code Family History Family History: Maternal uncle with lung cancer Parental Family History Reviewed: Yes - Mother with breast cancer. Father with lung cancer Children Family History Reviewed: Yes Sibling(s) Family History Reviewed.: Yes - Brother of ND and DM age 61. Other brother alive with diverticulitis Medication/Allergy Allergies/Adverse Reactions: No Known Allergies Allergy (Verified 04/09/18 15:31) Review of Systems Constitutional: ABSENT: fever(s), headache(s) Eyes: ABSENT: visual disturbances Ears: ABSENT: hearing changes Nose, Mouth, and Throat: ABSENT: sore throat Cardiovascular: PRESENT: chest pain Respiratory: PRESENT: as per HPI Gastrointestinal: ABSENT: constipation, nausea Genitourinary: ABSENT: dysuria Musculoskeletal: PRESENT: as per HPI Integumentary: ABSENT: rash Neurological: ABSENT: numbness, tingling Hematologic/Lymphatic: ABSENT: easy bleeding Physical Exam Vital Signs: Temp Pulse Resp BP Pulse Ox 98.2 F 95 18 115/72 97 05/15/19 08:04 05/15/19 08:04 05/15/19 08:04 05/15/19 08:04 05/15/19 08:04 Intake & Output 05/14/19 05/15/19 05/16/19 06:59 06:59 06:59 Weight 72.7 kg General appearance: PRESENT: no acute distress, well-developed, well-nourished Exam: 58 year old female. who appears to be in moderate pain. Head exam: PRESENT: atraumatic, normocephalic Eye exam: PRESENT: EOMI, PERRLA Mouth exam: PRESENT: tongue midline Neck exam: ABSENT: lymphadenopathy, tenderness Respiratory exam: PRESENT: clear to auscultation michel, unlabored, other - Splinting due to pain. Cardiovascular exam: PRESENT: RRR GI/Abdominal exam: PRESENT: soft. ABSENT: organolmegaly, tenderness Extremities exam: ABSENT: pedal edema Musculoskeletal exam: PRESENT: normal inspection, other - Pain with movement. Neurological exam: PRESENT: alert, awake, oriented to person, oriented to place, oriented to time, oriented to situation Psychiatric exam: PRESENT: appropriate affect Skin exam: PRESENT: normal color Results Laboratory Results: 05/14/19 20:42 05/14/19 20:42 05/14/19 05/14/19 20:42 20:42 WBC 8.0 RBC 3.77 Hgb 12.4 Hct 35.8 L MCV 95 MCH 32.8 MCHC 34.6 RDW 13.9 Plt Count 317 Seg Neutrophils % 50.8 Sodium 140.4 Potassium 4.4 Chloride 106 Carbon Dioxide 28 Anion Gap 6 BUN 15 Creatinine 1.07 Est GFR ( Amer) > 60 Glucose 78 Calcium 9.9 Total Bilirubin 0.4 AST 32 Alkaline Phosphatase 99 Total Protein 8.3 H Albumin 4.3 05/14/19 05/14/19 20:42 22:06 Troponin I < 0.012 < 0.012 Impressions: Chest/Abdomen CTA 05/14/19 19:06 IMPRESSION: Linear areas of low density filling defect associated with the proximal right lower lobe arterial segments likely reflecting chronic PE. No large or central PE. Lungs are clear TECHNICAL DOCUMENTATION: Quality ID # 436: Final reports with documentation of one or more dose reduction techniques (e.g., Automated exposure control, adjustment of the mA and/or kV according to patient size, use of iterative reconstruction technique) copyright 2011 [employer]- All Rights Reserved Chest X-Ray 05/14/19 19:09 IMPRESSION: No evidence of acute cardiopulmonary disease. Status: Image reviewed by me Assessment & Plan - Diagnosis (1) Factor V Leiden Is this a current diagnosis for this admission?: Yes Plan: Because of her history of multiple blood clots, it is recommended that she continue anticoagulation indefinitely. She understands this recommendation. (2) Pulmonary embolism Qualifiers: Pulmonary embolism type: other Chronicity: acute Acute cor pulmonale pre sence: unspecified Qualified Code(s): I26.99 - Other pulmonary embolism without acute cor pulmonale Is this a current diagnosis for this admission?: Yes Plan: Once primary team feels she is stable, I would change from Lovenox to Xarelto 15 mg po BID and continue this for 21 days before changing to 20 mg po Daily. Her Cr. is normal. - Plan Summary Plan Summary: She is still having significant pleuritic pain. Would consider increased pain medications and inspiratory spirometer to help prevent pneumonia. I would also consider restarting her home medications, including seroquel, Requip, and Ambien. I will defer to primary team.
--- NOTE | 2019-05-15 16:57 | PDOC PROGRESS REPORT ---
Subjective Progress Note for:: 05/15/19 Subjective:: The patient's major complaint is significant right-sided pleuritic chest pain. She does have a history of multiple thromboembolic events. She has a history of factor V Leiden mutation but stopped her anticoagulation on her own. Reason For Visit: PULMONARY EMBOLISM,FACTOR V LEIDEN DISEASE Physical Exam Vital Signs: Temp Pulse Resp BP Pulse Ox 98.1 F 78 16 98/66 L 97 05/15/19 16:43 05/15/19 16:43 05/15/19 16:43 05/15/19 16:43 05/15/19 16:43 Intake & Output 05/14/19 05/15/19 05/16/19 06:59 06:59 06:59 Intake Total 628 Balance 628 Weight 72.7 kg General appearance: PRESENT: cooperative, disheveled, mild distress - Mild to moderate distress focused in the right chest flank area under the breast., well- developed Head exam: PRESENT: atraumatic, normocephalic Ear exam: PRESENT: normal external ear exam. ABSENT: bleeding, drainage Respiratory exam: PRESENT: chest wall tenderness, clear to auscultation michel, symmetrical, unlabored, other - Limited inspiratory phase due to pain.. ABSENT: rales, rhonchi, tachypnea, wheezes Cardiovascular exam: PRESENT: RRR, +S1, +S2 GI/Abdominal exam: PRESENT: normal bowel sounds, soft. ABSENT: distended, guarding, mass, tenderness Rectal exam: PRESENT: deferred Extremities exam: ABSENT: pedal edema Musculoskeletal exam: PRESENT: ambulatory Neurological exam: PRESENT: alert, awake, oriented to person, oriented to place, oriented to time, oriented to situation, CN II-XII grossly intact Psychiatric exam: PRESENT: flat affect. ABSENT: agitated, anxious Results Laboratory Results: 05/14/19 20:42 05/14/19 20:42 05/14/19 05/14/19 20:42 20:42 WBC 8.0 RBC 3.77 Hgb 12.4 Hct 35.8 L MCV 95 MCH 32.8 MCHC 34.6 RDW 13.9 Plt Count 317 Seg Neutrophils % 50.8 Sodium 140.4 Potassium 4.4 Chloride 106 Carbon Dioxide 28 Anion Gap 6 BUN 15 Creatinine 1.07 Est GFR ( Amer) > 60 Glucose 78 Calcium 9.9 Total Bilirubin 0.4 AST 32 Alkaline Phosphatase 99 Total Protein 8.3 H Albumin 4.3 05/14/19 05/14/19 20:42 22:06 Troponin I < 0.012 < 0.012 Impressions: Chest/Abdomen CTA 05/14/19 19:06 IMPRESSION: Linear areas of low density filling defect associated with the proximal right lower lobe arterial segments likely reflecting chronic PE. No large or central PE. Lungs are clear TECHNICAL DOCUMENTATION: Quality ID # 436: Final reports with documentation of one or more dose reduction techniques (e.g., Automated exposure control, adjustment of the mA and/or kV according to patient size, use of iterative reconstruction technique) copyright 2011 [employer]- All Rights Reserved Chest X-Ray 05/14/19 19:09 IMPRESSION: No evidence of acute cardiopulmonary disease. Assessment and Plan - Diagnosis (1) Pulmonary embolism Qualifiers: Pulmonary embolism type: other Chronicity: acute Acute cor pulmonale presence: unspecified Qualified Code(s): I26.99 - Other pulmonary embolism without acute cor pulmonale Is this a current diagnosis for this admission?: Yes (2) Factor V Leiden Is this a current diagnosis for this admission?: Yes (3) Right-sided chest pain Is this a current diagnosis for this admission?: Yes (4) Hypertension Qualifiers: Hypertension type: essential hypertension Qualified Code(s): I10 - Essential (primary) hypertension Is this a current diagnosis for this admission?: Yes (5) Tobacco use disorder Is this a current diagnosis for this admission?: Yes (6) GERD (gastroesophageal reflux disease) Qualifiers: Esophagitis presence: esophagitis presence not specified Qualified Code(s): K21.9 - Gastro-esophageal reflux disease without esophagitis Is this a current diagnosis for this admission?: Yes - Plan Summary Summary: Patient is admitted to the medical floor where she will receive routine supportive and symptomatic cares. She will be treated with Lovenox 1 mg/kg subcutaneously every 12 hours. She will use morphine sulfate 2 to 4 mg IV every 2 hours on an as-needed basis for pain. She will use Ativan 1 mg IV every 4 hours on a as needed basis as needed for anxiety. Dr. Chauhan will be consulted to participate in the patient's care. CBCs, metabolic profiles and magnesium levels will be obtained as appropriate. Patient will be continued on her usual home medications as appropriate as soon as her medication list has been verified and reconciled. Smoking cessation is advised and counseled briefly. A nicotine replacement patch is available for patients use, if required. 05/15/2019 The patient has factor V Leiden mutation and has had multiple DVTs and PEs. She has a filter in her vena cava. For some reason she does not understand that she has to be on lifelong anticoagulation. She stopped her anticoagulation several years ago. PE with factor V Leiden mutation-I will switch her over to Xarelto. I told her that she must stay on anticoagulation permanently. Hopefully she will heed this advice. She still smokes. We did offer nicotine patch and she should stop smoking as well to try and improve lung function. She is on proton pump inhibitor therapy for reflux. Her blood pressure was high on admission but I believe that was related to pain. Her pressures are normal to low at this point. The right sided chest pain is pleuritic in nature and likely due to the pulmonary embolus. We will continue to monitor the patient's pulse oximetry, vital signs and telemetry. - Time Time Spent with patient: 15-24 minutes Medications reviewed and adjusted accordingly: Yes Anticipated discharge: Home
[2019-05-15] MEDS ORDERED: ROPINIROLE HCL 0.25 MG TABLET PO SCH (22:00)
[2019-05-15] MEDS ORDERED: (PENDING PHARMACY ID) (Quetiapine Fumarate [Seroquel Xr] 300 MG) PO SCH (22:00)
[2019-05-15] MEDS ORDERED: QUETIAPINE FUMARATE 100 MG TABLET PO SCH (22:00)
[2019-05-15] MEDS ORDERED: (PENDING PHARMACY ID) (Zolpidem Tartrate [Ambien] 10 MG) PO SCH (22:00)
[2019-05-16] MEDS ORDERED: MORPHINE SULFATE 10 MG/ML INJ IV PRN ×3 (01:24→08:48)
[2019-05-16 02:04] LABS: APPEARANCE,URINE SLIGHTLY-CLOUDY; BILIRUBIN,URINE NEGATIVE (NEGATIVE); COLOR,URINE YELLOW; GLUCOSE, URINE NEGATIVE (NEGATIVE); KETONES,URINE NEGATIVE (NEGATIVE); LEUKOCYTE ESTERASE,URINE NEGATIVE (NEGATIVE); NITRITE,URINE NEGATIVE (NEGATIVE); PROTEIN,URINE NEGATIVE (NEGATIVE); URINE SPECIFIC GRAVITY 1.017; UROBILINOGEN,URINE NEGATIVE mg/dL (<2.0)
[2019-05-16] MEDS: MORPHINE SULFATE 10 MG/ML INJ IV PRN ×2 (03:02→05:05)
[2019-05-16] MEDS: LORAZEPAM INJ 2 MG/1 ML VIAL IV PRN ×2 (04:09→08:18)
[2019-05-16 05:38] LABS: HEMATOCRIT 33.6 % (36.0-47.0); HEMOGLOBIN 11.5 g/dL (12.0-15.5); MEAN CORPUSCULAR HEMOGLOBIN 32.4 pg (27.0-33.4); MEAN CORPUSCULAR HGB CONC 34.3 g/dL (32.0-36.0); MEAN CORPUSCULAR VOLUME 94 fl (80-97); PLATELET COUNT 281 10^3/uL (150-450); RED BLOOD COUNT 3.56 10^6/uL (3.72-5.28); RED CELL DISTRIBUTION WIDTH 13.8 % (11.5-14.0); WHITE BLOOD COUNT 7.3 10^3/uL (4.0-10.5)
[2019-05-16 06:00] LABS: ANION GAP 5 (5-19); BLOOD UREA NITROGEN 16 mg/dL (7-20); CARBON DIOXIDE 28 mmol/L (22-30); CHLORIDE 106 mmol/L (98-107); GLUCOSE 83 mg/dL (75-110)
--- NOTE | 2019-05-16 08:20 | PDOC PROGRESS REPORT ---
Subjective Progress Note for:: 05/16/19 Subjective:: Patient states that she had a bad night. She is still having severe chest pain. She states that this is different than her prior PE pain. She states that the increased pain medication, with the ativan is helping better today. She denies any constipation. Reason For Visit: PULMONARY EMBOLISM,FACTOR V LEIDEN DISEASE Physical Exam Vital Signs: Temp Pulse Resp BP Pulse Ox 98.2 F 70 16 102/65 97 05/16/19 03:41 05/16/19 03:41 05/16/19 03:41 05/16/19 03:41 05/16/19 03:41 Intake & Output 05/15/19 05/16/19 05/17/19 06:59 06:59 06:59 Intake Total 868 Output Total 100 Balance 768 Weight 72.7 kg 81.9 kg General appearance: PRESENT: well-developed, well-nourished Head exam: PRESENT: normocephalic Respiratory exam: PRESENT: clear to auscultation michel, unlabored Cardiovascular exam: PRESENT: RRR Extremities exam: ABSENT: pedal edema Neurological exam: PRESENT: alert, awake Psychiatric exam: PRESENT: appropriate affect Skin exam: PRESENT: normal color Results Laboratory Results: 05/16/19 05:02 05/16/19 05:02 05/15/19 05/16/19 05/16/19 23:45 05:02 05:02 WBC 7.3 RBC 3.56 L Hgb 11.5 L Hct 33.6 L MCV 94 MCH 32.4 MCHC 34.3 RDW 13.8 Plt Count 281 Sodium 138.7 Potassium 4.0 Chloride 106 Carbon Dioxide 28 Anion Gap 5 BUN 16 Creatinine 0.99 Est GFR ( Amer) > 60 Glucose 83 Calcium 9.0 Magnesium 2.4 H Urine Color YELLOW Urine Appearance SLIGHTLY-CLOUDY Urine pH 6.0 Ur Specific [place] 1.017 Urine Protein NEGATIVE Urine Glucose (UA) NEGATIVE Urine Ketones NEGATIVE Urine Blood SMALL H Urine Nitrite NEGATIVE Ur Leukocyte Esterase NEGATIVE Urine WBC (Auto) 2 Urine RBC (Auto) 7 05/14/19 05/14/19 20:42 22:06 Troponin I < 0.012 < 0.012 Impressions: Chest/Abdomen CTA 05/14/19 19:06 IMPRESSION: Linear areas of low density filling defect associated with the proximal right lower lobe arterial segments likely reflecting chronic PE. No large or central PE. Lungs are clear TECHNICAL DOCUMENTATION: Quality ID # 436: Final reports with documentation of one or more dose reduction techniques (e.g., Automated exposure control, adjustment of the mA and/or kV according to patient size, use of iterative reconstruction technique) copyright 2011 [employer]- All Rights Reserved Chest X-Ray 05/14/19 19:09 IMPRESSION: No evidence of acute cardiopulmonary disease. Assessment & Plan - Diagnosis (1) Factor V Leiden Is this a current diagnosis for this admission?: Yes Plan: She understands that lifelong anticoagulation has been recommended. (2) Pulmonary embolism Qualifiers: Pulmonary embolism type: other Chronicity: acute Acute cor pulmonale presence: unspecified Qualified Code(s): I26.99 - Other pulmonary embolism without acute cor pulmonale Is this a current diagnosis for this admission?: Yes Plan: Continue Lovenox for now. She has also done well with xarelto in the past. However, she tells me that she has developed blood clots, while therapeutic on both of these medications in the past. We discussed the fact that she must stop smoking. Hopefully, she will stabilize. If pain does not improve in the next few days, consider repeating images. - Time Time Spent with patient: 15-24 minutes
[2019-05-16] MEDS ORDERED: OXYCODONE-ACETAMINOPHEN 5-325 MG TABLET PO PRN (08:47)
[2019-05-16] MEDS: DOCUSATE SODIUM 100 MG CAPSULE PO SCH ×2 (09:41→17:12)
[2019-05-16] MEDS: FAMOTIDINE 20 MG TABLET PO SCH (09:54)
[2019-05-16] MEDS: RIVAROXABAN 15 MG TABLET PO SCH ×2 (09:54→17:12)
[2019-05-16] MEDS: OXYCODONE-ACETAMINOPHEN 5-325 MG TABLET PO PRN ×2 (11:41→15:20)
[2019-05-16 17:22] VITALS: BP 151/93
--- NOTE | 2019-05-19 16:04 | PDOC DISCHARGE SUMMARY ---
Impression - Admit/DC Date/PCP Admission Date/Primary Care Provider: 05/15/19 01:35 RUBINA GOSS-Adams Discharge Date: 05/16/19 - Discharge Diagnosis (1) Factor V Leiden Is this a current diagnosis for this admission?: Yes (2) GERD (gastroesophageal reflux disease) Is this a current diagnosis for this admission?: Yes (3) Hypertension Is this a current diagnosis for this admission?: Yes (4) Pulmonary embolism Is this a current diagnosis for this admission?: Yes (5) Right-sided chest pain Is this a current diagnosis for this admission?: Yes (6) Tobacco use disorder Is this a current diagnosis for this admission?: Yes - Additional Information Resuscitation Status: Full Code Discharge Diet: Regular Discharge Activity: Activity As Tolerated, Balance Activity w/Rest, Slowly Increase Activity Referrals: ROBBIE CHO MD [ACTIVE STAFF] - 05/26/19 12:00 pm (Please follow up within 1 week.) GIAN BROWN PA-C [ALLIED HEALTH PROFESSIONAL] - 05/22/19 11:30 am (need appt. in a week.) Prescriptions: Buspirone HCl [Buspar 10 mg Tablet] 10 mg PO BID #60 tablet Docusate Sodium [Colace 100 mg Capsule] 100 mg PO BID #60 capsule Melatonin [Melatonin 5 mg Tablet] 5 mg PO HSP PRN #90 tablet PRN Reason: Nicotine [Nicoderm 21 mg/24 Hr Transderm Patch] 1 each TD DAILYP PRN #30 patch.td24 PRN Reason: Oxycodone HCl/Acetaminophen [Percocet 5-325 mg Tablet] 2 tab PO Q4HP PRN #40 tablet PRN Reason: Rivaroxaban [Xarelto] 20 mg PO DAILY #30 tablet Rivaroxaban [Xarelto 15 mg Tablet] 15 mg PO BIDBS #40 tablet Home Medications: Quetiapine Fumarate [Seroquel Xr] 300 mg PO QHS 05/15/19 Ropinirole HCl [Requip 0.25 mg Tablet] 0.25 mg PO QHS 05/15/19 Zolpidem Tartrate [Ambien] 10 mg PO QHS 05/15/19 Acetaminophen [Tylenol 325 mg Tablet] 650 mg PO Q4HP PRN tablet 05/16/19 Buspirone HCl [Buspar 10 mg Tablet] 10 mg PO BID #60 tablet 05/16/19 Docusate Sodium [Colace 100 mg Capsule] 100 mg PO BID #60 capsule 05/16/19 Melatonin [Melatonin 5 mg Tablet] 5 mg PO HSP PRN #90 tablet 05/16/19 Nicotine [Nicoderm 21 mg/24 Hr Transderm Patch] 1 each TD DAILYP PRN #30 patch.td24 05/16/19 Oxycodone HCl/Acetaminophen [Percocet 5-325 mg Tablet] 2 tab PO Q4HP PRN #40 tablet 05/16/19 Quetiapine Fumarate [Seroquel 100 mg Tablet] 300 mg PO QHS tablet 05/16/19 Rivaroxaban [Xarelto 15 mg Tablet] 15 mg PO BIDBS #40 tablet 05/16/19 Rivaroxaban [Xarelto] 20 mg PO DAILY #30 tablet 05/16/19 Ropinirole HCl [Requip 0.25 mg Tablet] 0.25 mg PO QHS tablet 05/16/19 Zolpidem Tartrate [Ambien 5 mg Tablet] 10 mg PO HSP PRN tablet 05/16/19 History of Present Illiness History of Present Illness: Per H&P by Dr. Reese: BEATRICE URIBE is a 58 year old female who presented to the emergency room with a 3-day history of right-sided chest pain. She admits a sudden onset of constant, moderately severe, right anterior chest pressure and sharp pain without radiation on 05/12/2019. The pain is accompanied by dyspnea and both the pain and dyspnea are worsened on exertion. The pain is associated with occasional lightheadedness on standing. The pain was not improved by ibuprofen. She denies other associated or accompanying signs and symptoms. She admits a history of pulmonary embolism in the past and was on Xarelto until 2 years ago when an IVC filter was placed. She has a history of factor V Leiden disease. She denies identification of any additional aggravating or ameliorat ing factors for her chest pain. In the emergency room she was found to have a CTA of the chest which revealed a pulmonary embolism in the right lower lobe arterial distribution of questionable age. Because of the patient's acute symptoms it was elected to treat this as an acute pulmonary embolism and she was therefore started on therapy with Lovenox. At the request of Dr. Chauhan she was admitted to the hospital for further evaluation and treatment. Hospital Course Hospital Course: The patient was admitted to the medical floor on continuous cardiac t elemetrySupplemental oxygen as needed to maintain saturations greater than 89%. Pulmonary toilet was encouraged with incentive spirometer, position changing, and ambulation. She was placed on full dose Lovenox with analgesics as needed for her pleuritic chest pain. Oncology was consulted; recommended discharged on Xarelto. The patient's oxygen requirements rapidly improved and on day of discharge she was ambulatory without discomfort, increased work of breathing, or tachypnea on room air. Patient's pain was well-controlled with p.o. Percocet. Therefore, she was discharged to home with self-care and instructions to follow- up with her primary care provider and Dr. Dangelo within 1 week. She was further encouraged to discontinue smoking. She was advised to return to the emergency department as needed for concerning symptoms. Physical Exam Vital Signs: Temp Pulse Resp BP Pulse Ox 97.7 F 70 16 151/93 H 97 05/16/19 17:21 05/16/19 17:21 05/16/19 17:21 05/16/19 17:21 05/16/19 17:21 General appearance: PRESENT: no acute distress, cooperative, disheveled, obese, well-developed, well-nourished Head exam: PRESENT: atraumatic, normocephalic Eye exam: PRESENT: conjunctiva pink, EOMI, PERRLA. ABSENT: scleral icterus Mouth exam: PRESENT: moist, tongue midline Teeth exam: PRESENT: poor dentation Respiratory exam: PRESENT: clear to auscultation michel, symmetrical, unlabored, other - Ambulatory on room air. ABSENT: rales, rhonchi, wheezes Cardiovascular exam: PRESENT: RRR. ABSENT: diastolic murmur, rubs, systolic murmur Pulses: PRESENT: normal dorsalis pedis pul Vascular exam: PRESENT: normal capillary refill Extremities exam: PRESENT: full ROM, pedal edema - Trace bilaterally. ABSENT: calf tenderness, clubbing Neurological exam: PRESENT: alert, awake, oriented to person, oriented to place, oriented to time, oriented to situation, CN II-XII grossly intact. ABSENT: motor sensory deficit Psychiatric exam: PRESENT: appropriate affect, normal mood. ABSENT: homicidal ideation, suicidal ideation Skin exam: PRESENT: dry, intact, warm. ABSENT: cyanosis, rash Results Laboratory Results: WBC 7.3 10^3/uL (4.0-10.5) 05/16/19 05:02 RBC 3.56 10^6/uL (3.72-5.28) L 05/16/19 05:02 Hgb 11.5 g/dL (12.0-15.5) L 05/16/19 05:02 Hct 33.6 % (36.0-47.0) L 05/16/19 05:02 MCV 94 fl (80-97) 05/16/19 05:02 MCH 32.4 pg (27.0-33.4) 05/16/19 05:02 MCHC 34.3 g/dL (32.0-36.0) 05/16/19 05:02 RDW 13.8 % (11.5-14.0) 05/16/19 05:02 Plt Count 281 10^3/uL (150-450) 05/16/19 05:02 Lymph % (Auto) 39.5 % (13-45) 05/14/19 20:42 Meigs % (Auto) 7.2 % (3-13) 05/14/19 20:42 Eos % (Auto) 1.8 % (0-6) 05/14/19 20:42 Baso % (Auto) 0.7 % (0-2) 05/14/19 20:42 Absolute Neuts (auto) 4.1 10^3/uL (1.7-8.2) 05/14/19 20:42 Absolute Lymphs (auto) 3.2 10^3/uL (0.5-4.7) 05/14/19 20:42 Absolute Monos (auto) 0.6 10^3/uL (0.1-1.4) 05/14/19 20:42 Absolute Eos (auto) 0.1 10^3/uL (0.0-0.6) 05/14/19 20:42 Absolute Basos (auto) 0.1 10^3/uL (0.0-0.2) 05/14/19 20:42 Seg Neutrophils % 50.8 % (42-78) 05/14/19 20:42 PT 11.9 SEC (11.4-15.4) 05/14/19 20:42 INR 0.88 05/14/19 20:42 APTT 27.8 SEC (23.5-35.8) 05/14/19 20:42 Sodium 138.7 mmol/L (137-145) 05/16/19 05:02 Potassium 4.0 mmol/L (3.6-5.0) 05/16/19 05:02 Chloride 106 mmol/L (98-107) 05/16/19 05:02 Carbon Dioxide 28 mmol/L (22-30) 05/16/19 05:02 Anion Gap 5 (5-19) 05/16/19 05:02 BUN 16 mg/dL (7-20) 05/16/19 05:02 Creatinine 0.99 mg/dL (0.52-1.25) 05/16/19 05:02 Est GFR ( Amer) > 60 (>60) 05/16/19 05:02 Est GFR (MDRD) Non-Af 58 (>60) L 05/16/19 05:02 Glucose 83 mg/dL (75-110) 05/16/19 05:02 Calcium 9.0 mg/dL (8.4-10.2) 05/16/19 05:02 Magnesium 2.4 mg/dL (1.6-2.3) H 05/16/19 05:02 Total Bilirubin 0.4 mg/dL (0.2-1.3) 05/14/19 20:42 Direct Bilirubin 0.3 mg/dL (0.0-0.4) 05/14/19 20:42 Neonat Total Bilirubin Not Reportable 05/14/19 20:42 Neonat Direct Bilirubin Not Reportable 05/14/19 20:42 Neonat Indirect Bili Not Reportable 05/14/19 20:42 AST 32 U/L (14-36) 05/14/19 20:42 ALT 22 U/L (<35) 05/14/19 20:42 Alkaline Phosphatase 99 U/L (38-126) 05/14/19 20:42 Troponin I < 0.012 ng/mL 05/14/19 22:06 Total Protein 8.3 g/dL (6.3-8.2) H 05/14/19 20:42 Albumin 4.3 g/dL (3.5-5.0) 05/14/19 20:42 Urine Color YELLOW 05/15/19 23:45 Urine Appearance SLIGHTLY-CLOUDY 05/15/19 23:45 Urine pH 6.0 (5.0-9.0) 05/15/19 23:45 Ur Specific Jachin 1.017 05/15/19 23:45 Urine Protein NEGATIVE mg/dL (NEGATIVE) 05/15/19 23:45 Urine Glucose (UA) NEGATIVE mg/dL (NEGATIVE) 05/15/19 23:45 Urine Ketones NEGATIVE mg/dL (NEGATIVE) 05/15/19 23:45 Urine Blood SMALL (NEGATIVE) H 05/15/19 23:45 Urine Nitrite NEGATIVE (NEGATIVE) 05/15/19 23:45 Urine Bilirubin NEGATIVE (NEGATIVE) 05/15/19 23:45 Urine Urobilinogen NEGATIVE mg/dL (<2.0) 05/15/19 23:45 Ur Leukocyte Esterase NEGATIVE (NEGATIVE) 05/15/19 23:45 Urine WBC (Auto) 2 /HPF 05/15/19 23:45 Urine RBC (Auto) 7 /HPF 05/15/19 23:45 Urine Bacteria (Auto) TRACE /HPF 05/15/19 23:45 Squamous Epi Cells Auto 6 /HPF 05/15/19 23:45 Urine Mucus (Auto) RARE /LPF 05/15/19 23:45 Urine Ascorbic Acid NEGATIVE (NEGATIVE) 05/15/19 23:45 05/14/19 02 20:42 22:06 Troponin I < 0.012 < 0.012 Impressions: Chest/Abdomen CTA 05/14/19 19:06 IMPRESSION: Linear areas of low density filling defect associated with the proximal right lower lobe arterial segments likely reflecting chronic PE. No large or central PE. Lungs are clear TECHNICAL DOCUMENTATION: Quality ID # 436: Final reports with documentation of one or more dose reduction techniques (e.g., Automated exposure control, adjustment of the mA and/or kV according to patient size, use of iterative reconstruction technique) copyright 2011 [employer]- All Rights Reserved Chest X-Ray 05/14/19 19:09 IMPRESSION: No evidence of acute cardiopulmonary disease. Plan Plan of Treatment: Patient is discharged home with self-care. She is advised to follow-up with her primary care provider and with Dr. Dangelo within the next week. She is instructed to take her medications as prescribed; will start Xarelto twice daily for the next 20 days and then transition to the once daily dosing. She is encouraged to stop smoking. She is instructed to return to the emergency department as needed for concerning symptoms. Time Spent: Greater than 30 Minutes Stroke Is this a Stroke Patient?: No Acute Heart Failure - Is this a Heart Failure Patient?: No
== END 2019-05-16 17:45 | disposition home or self-care (01) | DRG 176 ==
LOC: ER 18:24 → EH 05-15 01:35 → 3W 05-15 04:00
PROVIDERS: ADMIT Emergency Medicine; ATTEND Emergency Medicine
DX: I26.99 Other pulmonary embolism without acute cor pulmonale (principal); D68.51 Activated protein C resistance; K21.9 Gastro-esophageal reflux disease without esophagitis; I10 Essential (primary) hypertension; E78.5 Hyperlipidemia, unspecified; J45.909 Unspecified asthma, uncomplicated; G43.909 Migraine, unspecified, not intractable, without status migrainosus; F31.9 Bipolar disorder, unspecified; F17.210 Nicotine dependence, cigarettes, uncomplicated; Z79.01 Long term (current) use of anticoagulants; Z86.711 Personal history of pulmonary embolism; Z86.718 Personal history of other venous thrombosis and embolism
CPT/HCPCS: 36415; 71045; 71275; 80048; 80053; 81001; 83735; 84484; 85025; 85027; 85610; 85730; 93005; 93010; 94799; 96372; 96374; 96375; 99285; J1650; J2060; J2270; J2405; J3010; J3490

== ENCOUNTER 2019-08-19 10:10 | Emergency (ER) | payer MEDICAID ==
[2019-08-19 10:17] VITALS: BP 149/95
== END 2019-08-19 11:45 | disposition left against medical advice (07) ==
LOC: ER 10:10
DX: Z53.21 Procedure and treatment not carried out due to patient leaving prior to being seen by health care provider (principal)

== ENCOUNTER 2019-11-13 10:37 | Emergency (ER) | payer MEDICAID ==
[2019-11-13 10:43] VITALS: BP 151/91
[2019-11-13] MEDS ORDERED: IBUPROFEN 800 MG TABLET PO ONE (10:56)
--- NOTE | 2019-11-13 11:00 | ER Document Report ---
ED Extremity Problem, Lower - General Chief Complaint: Foot Pain Stated Complaint: FOOT PAIN Time Seen by Provider: 11/13/19 10:55 Primary Care Provider: [facility] [Provider Group] - Follow up as needed LISA PUENTE FNP-C [COMMUNITY BASED STAFF] - Follow up as needed Mode of Arrival: Wheelchair Information source: Patient Notes: 59-year-old female presents to ED for complaint of right foot pain. She states is to the lateral aspect of the right foot and ankle. She states is been hurting for the past week. She states she tripped over a cat a week ago and thought she could take care of it. She states the pain is still severe at times. She states she took Tylenol just before coming to the emergency room and the pain is still at 3 out of 5. Patient is alert oriented respirations regular nonlabored speaking in full sentences. REVIEW OF SYSTEMS: CONSTITUTIONAL : Denies fever, chills, or sweats. Denies recent illness. EENT: Denies eye, ear, throat, or mouth pain or symptoms. Denies nasal or sinus congestion. CARDIOVASCULAR: Denies chest pain. RESPIRATORY: Denies cough, cold, or chest congestion. Denies shortness of breath, difficulty breathing, or wheezing. GASTROINTESTINAL: Denies abdominal pain. Denies nausea, vomiting, or diarrhea. Denies constipation. Last BM: GENITOURINARY: Denies difficulty urinating, painful urination, burning, frequency, or blood in urine. FEMALE GENITOURINARY: Denies vaginal bleeding, abnormal or irregular periods. LMP: MUSCULOSKELETAL: Pain and swelling to lateral aspect of right foot SKIN: Denies rash or skin lesions. HEMATOLOGIC : Denies easy bruising or bleeding. LYMPHATIC: Denies swollen, enlarged glands. NEUROLOGICAL: Denies altered mental status or loss of consciousness. Denies headache. Denies weakness or paralysis or loss of use of either side. Denies problems with gait or speech. Denies sensory or motor loss. PSYCHIATRIC: Denies anxiety or stress or depression. ALL OTHER SYSTEMS REVIEWED AND NEGATIVE. VITAL SIGNS: Within normal limits. GENERAL: No acute distress, non-toxic appearance. HEAD: Normal with no signs of head trauma. EYES: PERRLA, EOMI, conjunctiva normal, no discharge. EARS: Hearing grossly intact. NOSE: Normal. THROAT: Oropharynx is normal. NECK: Normal range of motion, no tenderness, supple, no lymphadenopathy, No adenopathy, no JVD. CHEST: Clear breath sounds bilaterally. No wheezes, rales, or rhonchi. CARDIAC: Regular rate and rhythm. S1 and S2, without murmurs, gallops, or rubs. VASCULAR: No Edema. Peripheral pulses normal and equal in all extremities. ABDOMEN: Normal and soft with no tenderness, no masses or pulsatile masses. GASTROINTESTINAL: Bowel sounds normal GENITOURINARY: Normal, No tenderness LYMPATHTIC: No lymphadenopathy noted. MUSCULOSKELETAL: Good range of motion of all major joints. Lateral aspect of right foot and ankle tender slightly bruise minimal swelling NEUROLOGICAL: Alert and oriented x 3. No focal sensory or strength deficits. Speech normal. Follows commands appropriately. PSYCHIATRIC: Normal Affect, judgement and mood. SKIN: Normal appearance with no rashes or lesions. TRAVEL OUTSIDE OF THE [place] IN LAST 30 DAYS: No - HPI Patient complains to provider of: Pain, Swelling Location: Ankle, Foot Occurred: Last week Where: Home, Indoors Onset/Duration: Persistent Quality of pain: Achy, Sharp Severity: Moderate Pain Level: 3 Context: Wearing shoes Recent injury: Yes Associated symptoms: Painful ambulation Exacerbated by: Hanging down, Movement, Walking Relieved by: Elevation, Ice, Rest - Related Data Allergies/Adverse Reactions: No Known Allergies Allergy (Verified 11/13/19 10:49) Home Medications: Seroquel. Requip. Ambien Past Medical History - Social History Smoking Status: Current Every Day Smoker Chew tobacco use (# tins/day): No Frequency of alcohol use: None Drug Abuse: None Family History: Reviewed & Not Pertinent Patient has homicidal ideation: No - Past Medical History Cardiac Medical History: Reports: Hx DVT, Hx Hypercholesterolemia, Hx Hypertension - No daily meds (02/27/18), Hx Pulmonary Embolism Denies: Hx Atrial Fibrillation, Hx Congestive Heart Failure, Hx Coronary Artery Disease, Hx Heart Attack, Hx Peripheral Vascular Disease Pulmonary Medical History: Reports: Hx Asthma Denies: Hx Bronchitis, Hx COPD, Hx Pneumonia, Hx Tuberculosis Neurological Medical History: Reports: Hx Migraine. Denies: Hx Seizures Endocrine Medical History: Denies: Hx Diabetes Mellitus Type 1, Hx Diabetes Mellitus Type 2, Hx Hyperthyroidism, Hx Hypothyroidism Renal/ Medical History: Reports: Hx Kidney Stones. Denies: Hx Peritoneal Dialysis GI Medical History: Reports: Hx Gastroesophageal Reflux Disease. Denies: Hx Cirrhosis, Hx Crohn's Disease, Hx Hepatitis, Hx Ulcerative Colitis Musculoskeletal Medical History: Denies Hx Arthritis, Denies Hx Gout Skin Medical History: Denies Hx Eczema, Denies Hx Psoriasis Psychiatric Medical History: Reports: Hx Bipolar Disorder, Hx Depression Infectious Medical History: Denies: Hx Hepatitis Past Surgical History: Reports: Hx Orthopedic Surgery - Left Leg, Hx Vascular Surgery - IVC filter - Immunizations Immunizations up to date: Yes Hx Diphtheria, Pertussis, Tetanus Vaccination: No Physical Exam - Vital signs Vitals: Temp Pulse Resp BP Pulse Ox 98.9 F 91 18 151/91 H 100 11/13/19 10:41 11/13/19 10:41 11/13/19 10:41 11/13/19 10:41 11/13/19 10:41 Course - Re-evaluation Re-evalutation: 11/13/19 21:55 Patient had on shoes that supported the toe better than a postop shoe. She did have a proximal third toe displaced fracture. She was given crutches as it is very painful to walk on this foot. Patient was able to use the crutches appropriately before discharge. Patient was discharged home. - Vital Signs Vital signs: Temp Pulse Resp BP Pulse Ox 98.9 F 91 18 151/91 H 100 11/13/19 10:41 11/13/19 10:41 11/13/19 10:41 11/13/19 10:41 11/13/19 10:41 - Diagnostic Test Radiology reviewed: Image reviewed, Reports reviewed Procedures - Immobilization Right Toe Time completed: 12:05 Pre-Proc Neuro Vasc Exam: Normal Immobilizer type: Crutches Performed by: PCT Post-Proc Neuro Vasc Exam: Normal Alignment checked and good: Yes Discharge - Discharge Clinical Impression: Right third proximal toe fracture placed Condition: Stable Disposition: HOME, SELF-CARE Additional Instructions: You were seen today for a minimally displaced obliquely oriented midshaft fracture of the third proximal phalanx of right foot. He states this has been painful for a week. We offered you a postop shoe for immobilization but the shoe you have on right just is much immobilization and is probably much more comfortable as it matches your other shoe. We have elected to wear the shoes anytime you are up walking instead of getting the postop shoe. Have given you instructions on crutches to help you to not put as much weight on this foot until you can follow-up with orthopedics. Ice & Elevation Apply ice packs frequently against the painful area. Many different schedules are recommended, such as "20 minutes on, 20 minutes off" or "one hour ice, two hours rest." If you need to work, you may need to go longer between ice treatments. You should plan to have the area ice packed AT LEAST one-fourth of the time. The ice should be applied over the wrap, tape, or splint, or over a layer of cloth -- not directly against the skin. Some ice bags have a built-in cloth and can be put directly on the skin. Your injured part should be elevated as much as possible over the next 48 hours. Try to keep the injury above the level of the heart. Avoid use of the injured area. Elevation and rest will decrease the swelling. Ibuprofen Ibuprofen is an excellent, safe drug for pain control. In addition, it has potent antiinflammatory effects which are beneficial, especially in the treatment of injuries, arthritis, or tendonitis. It's best to take ibuprofen with food. Persons with ulcer disease or allergy to aspirin should notify their physician of this before taking ibuprofen. Take the medication exactly as prescribed. Don't take additional doses unless instructed to do so by your doctor. If you develop wheezing, shortness of breath, hives, faintness, stomach pain, vomiting, or dark black stools, return for re-evaluation at once. FOLLOW-UP CARE: If you have been referred to a physician for follow-up care, call the physicians office for an appointment as you were instructed or within the next two days. If you experience worsening or a significant change in your symptoms, notify the physician immediately or return to the Emergency Department at any time for re-evaluation. Forms: Elevated Blood Pressure, Smoking Cessation Education Referrals: LISA PUENTE FNP-C [COMMUNITY BASED STAFF] - Follow up as needed [facility] [Provider Group] - Follow up as needed
--- NOTE | 2019-11-13 11:27 | RADIOLOGY REPORT (SQ) ---
EXAM DESCRIPTION: FOOT RIGHT COMPLETE IMAGES COMPLETED DATE/TIME: 11/13/2019 11:16 am REASON FOR STUDY: pain injury swelling COMPARISON: None. NUMBER OF VIEWS: Three views. TECHNIQUE: AP, lateral and oblique radiographic images acquired of the right foot. LIMITATIONS: None. FINDINGS: MINERALIZATION: Decreased. BONES: Minimally displaced obliquely oriented midshaft fracture of the 3rd proximal phalanx. No jazmin tional fractures identified. Mild scattered degenerative changes with small osteophytes. JOINTS: No effusions. SOFT TISSUES: Mild soft tissue swelling about the forefoot. No radiopaque foreign body. OTHER: No other significant finding. IMPRESSION: Minimally displaced obliquely oriented midshaft fracture of the 3rd proximal phalanx. TECHNICAL DOCUMENTATION: JOB ID: [id number] 2010 [employer]- All Rights Reserved Reading location - IP/workstation name: [email or web address]
--- NOTE | 2019-11-13 11:28 | RADIOLOGY REPORT (SQ) ---
EXAM DESCRIPTION: ANKLE RIGHT COMPLETE IMAGES COMPLETED DATE/TIME: 11/13/2019 11:16 am REASON FOR STUDY: pain injury swelling COMPARISON: None. NUMBER OF VIEWS: Three views. TECHNIQUE: AP, lateral, and oblique radiographic images acquired of the right ankle. LIMITATIONS: None. FINDINGS: MINERALIZATION: Normal. BONES: No acute fracture or dislocation. No worrisome bone lesions. JOINTS: No effusions. Minimal osteophytosis along the inferolateral malleolus. SOFT TISSUES: No soft tissue swelling. No foreign body. OTHER: No other significant finding. IMPRESSION: NEGATIVE STUDY OF THE RIGHT ANKLE. NO RADIOGRAPHIC EVIDENCE OF ACUTE INJURY. TECHNICAL DOCUMENTATION: JOB ID: [id number] 2010 [employer]- All Rights Reserved Reading location - IP/workstation name: [email or web address]
== END 2019-11-13 12:45 | disposition home or self-care (01) ==
LOC: ER 10:37
DX: S92.511A Displaced fracture of proximal phalanx of right lesser toe(s), initial encounter for closed fracture (principal); M79.671 Pain in right foot; M79.89 Other specified soft tissue disorders; W01.0XXA Fall on same level from slipping, tripping and stumbling without subsequent striking against object, initial encounter; Z79.899 Other long term (current) drug therapy; F17.200 Nicotine dependence, unspecified, uncomplicated; I10 Essential (primary) hypertension; J45.909 Unspecified asthma, uncomplicated
CPT/HCPCS: 99283; 73610; 73630; J3490